=== PATIENT | male | born 1945 | race Caucasian/White ===

== ENCOUNTER → 2017-03-27 08:12 | Outpatient (REF) | payer MEDICARE, SELFPAY ==
[2017-03-27 10:40] LABS: Digoxin Level 1.35 ng/mL (0.80-2.00)
== END ==
LOC: OLS.ACW100 08:12
PROVIDERS: Visit Provider Family Medicine
DX: I50.9 Heart failure, unspecified (principal); L03.116 Cellulitis of left lower limb; R27.9 Unspecified lack of coordination; R26.2 Difficulty in walking, not elsewhere classified; F01.50 Vascular dementia, unspecified severity, without behavioral disturbance, psychotic disturbance, mood disturbance, and anxiety
CPT/HCPCS: 36415; 80162